=== PATIENT | male | born 1990 | race African-American/Black ===

== ENCOUNTER → 2016-07-12 | Outpatient (CLI) | payer OTHER ==
--- NOTE | 2016-07-12 13:58 | REP ---
MR BRAIN WITHOUT CONTRAST: HISTORY: Seizures. There are no areas of abnormal signal intensity in the brain. There is no intraparenchymal hemorrhage, infarct, mass or midline shift. The ventricular system is normal in appearance. There is no extracerebral collection. Mucosal thickening is present in the maxillary sinuses. IMPRESSION: There is no intracranial lesion. Signed by Deniz Barrett MD 07/12/2016 02:11 P
== END ==
LOC: M RAD 10:50
PROVIDERS: ATTEND Thoracic Surgery (Cardiothoracic Vascular Surgery)
DX: G40.909 Epilepsy, unspecified, not intractable, without status epilepticus (principal)
CPT/HCPCS: 70553; A9576

== ENCOUNTER 2021-05-14 08:42 | Emergency (ER) | payer MEDICAID, OTHER ==
[~2021-05-14] VITALS: Ht 188 cm; Wt 82.6 kg
[2021-05-14] MEDS ORDERED: KETOROLAC 30 MG/ML 1ML VIAL IV ONE (09:55)
[2021-05-14] MEDS ORDERED: ALBUTEROL 90 MCG/ACT 8GM HFA INHALER INH SCH (09:55)
[2021-05-14] MEDS ORDERED: ACETAMINOPHEN 325 MG TAB PO ONE (09:55)
[2021-05-14] MEDS ORDERED: ONDANSETRON 4MG/2ML VIAL IV ONE (09:55)
[2021-05-14] MEDS ORDERED: NS 1,000 ML IV ONE (09:55)
[2021-05-14 10:37] LABS: RSV AMPLIFICATION NEGATIVE (NEGATIVE)
[2021-05-14 10:42] LABS: BASO # 0.1 10^3/uL (0.0-0.2); BASO % 0.8 % (0.0-1.0); EOS % 0.4 % (0.0-3.0); HEMATOCRIT 40.5 % (42.0-52.0); HEMOGLOBIN 13.7 g/dl (13.5-17.5); LYMPH # 0.6 10^3/uL (1.5-5.0); LYMPH % 7.7 % (24.0-44.0); MEAN CORPUSCULAR HEMOGLOBIN 28.4 pg (27.0-33.0); MEAN CORPUSCULAR HGB CONC 33.8 g/dl (32.0-36.5); MEAN CORPUSCULAR VOLUME 83.9 fl (80.0-96.0); MONO # 1.4 10^3/uL (0.0-0.8); MONO % 19.2 % (2.0-8.0); NEUTROPHILS # 5.3 10^3/uL (1.5-8.5); NEUTROPHILS % 71.5 % (36.0-66.0); RED BLOOD COUNT 4.83 10^6/uL (4.30-6.10); WHITE BLOOD COUNT 7.4 10^3/uL (4.0-10.0)
[2021-05-14 11:09] LABS: BLOOD UREA NITROGEN 10 MG/DL (7-18); CALCIUM LEVEL 9.2 MG/DL (8.5-10.1); CARBON DIOXIDE LEVEL 28 MEQ/L (21-32); CHLORIDE LEVEL 102 MEQ/L (98-107); CREATININE FOR GFR 0.88 MG/DL (0.70-1.30); GLOMERULAR FILTRATION RATE > 60.0 (>60); GLUCOSE, FASTING 101 MG/DL (70-100); SODIUM LEVEL 136 MEQ/L (136-145)
[2021-05-14] MEDS ORDERED: OSELTAMIVIR PHOSPHATE 75 MG CAP (TAMIFLU) PO ONE (11:50)
[2021-05-14] MEDS ORDERED: PROAAER10 INH (12:00)
[2021-05-14] MEDS ORDERED: ONDA4TAB6 PO (12:00)
[2021-05-14] MEDS ORDERED: TESS100C PO (12:00)
[2021-05-14 12:06] VITALS: BP 138/86
[2021-05-14] MEDS ORDERED: OSEL75CA PO (12:11)
== END 2021-05-14 12:20 | disposition home or self-care (01) ==
LOC: M ED 08:42
DX: J09.X9 Influenza due to identified novel influenza A virus with other manifestations (principal); R05.9 Cough, unspecified; R07.9 Chest pain, unspecified; J02.9 Acute pharyngitis, unspecified; Z85.830 Personal history of malignant neoplasm of bone; F17.200 Nicotine dependence, unspecified, uncomplicated; Z79.899 Other long term (current) drug therapy
CPT/HCPCS: 71045; 80048; 85025; 87631; 87880; 94640; 94664; 96361; 96374; 96375; 99284; J1885; J2405

== ENCOUNTER 2022-01-13 15:55 | Emergency (ER) | payer OTHER ==
[~2022-01-13] VITALS: Ht 188 cm; Wt 83.2 kg
[~2022-01-13 15:55] MED LIST: ONDA4TAB6 PO; OSEL75CA PO; PROAAER10 INH; TESS100C PO
[2022-01-13 15:56] VITALS: BP 125/76
[2022-01-13 16:46] LABS: BASO # 0.1 10^3/uL (0.0-0.2); BASO % 1.6 % (0.0-1.0); EOS % 0.5 % (0.0-3.0); HEMATOCRIT 40.2 % (42.0-52.0); HEMOGLOBIN 13.6 g/dl (13.5-17.5); LYMPH # 1.9 10^3/uL (1.5-5.0); LYMPH % 33.4 % (24.0-44.0); MEAN CORPUSCULAR HEMOGLOBIN 28.6 pg (27.0-33.0); MEAN CORPUSCULAR HGB CONC 33.8 g/dl (32.0-36.5); MEAN CORPUSCULAR VOLUME 84.6 fl (80.0-96.0); MONO # 0.5 10^3/uL (0.0-0.8); MONO % 8.9 % (2.0-8.0); NEUTROPHILS # 3.1 10^3/uL (1.5-8.5); NEUTROPHILS % 55.2 % (36.0-66.0); PLATELET COUNT, AUTOMATED 251 10^3/uL (150-450); RED BLOOD COUNT 4.75 10^6/uL (4.30-6.10); WHITE BLOOD COUNT 5.6 10^3/uL (4.0-10.0)
[2022-01-13 17:10] LABS: BLOOD UREA NITROGEN 10 MG/DL (7-18); CALCIUM LEVEL 9.1 MG/DL (8.5-10.1); CARBON DIOXIDE LEVEL 24 MEQ/L (21-32); CHLORIDE LEVEL 105 MEQ/L (98-107); CREATININE FOR GFR 0.75 MG/DL (0.70-1.30); GLOMERULAR FILTRATION RATE > 60.0 (>60); GLUCOSE, FASTING 82 MG/DL (70-100); POTASSIUM SERUM 3.8 MEQ/L (3.5-5.1); SODIUM LEVEL 136 MEQ/L (136-145)
[2022-01-13 19:52] LABS: MAGNESIUM LEVEL 2.1 MG/DL (1.8-2.4); THYROID STIMULATING HORMONE 0.312 uIU/ML (0.358-3.740)
== END 2022-01-13 21:17 | disposition home or self-care (01) ==
LOC: M ED 15:55
DX: R55 Syncope and collapse (principal); Z53.20 Procedure and treatment not carried out because of patient's decision for unspecified reasons; R22.43 Localized swelling, mass and lump, lower limb, bilateral; Z85.830 Personal history of malignant neoplasm of bone; F17.210 Nicotine dependence, cigarettes, uncomplicated

== ENCOUNTER 2023-08-19 15:49 | Emergency (ER) | payer OTHER, SELFPAY ==
[2023-08-19 15:50] VITALS: TEMP 98.3
[2023-08-19] MEDS ORDERED: HYDR-3713 PO (19:02)
[2023-08-19 19:11] VITALS: BP 174/94; O2SAT 99
== END 2023-08-19 19:12 | disposition home or self-care (01) ==
LOC: M ED 15:49
DX: R68.84 Jaw pain (principal); F12.10 Cannabis abuse, uncomplicated; F10.10 Alcohol abuse, uncomplicated; Z79.1 Long term (current) use of non-steroidal anti-inflammatories (NSAID)

== ENCOUNTER 2024-02-03 07:35 | Emergency (ER) | payer OTHER, SELFPAY ==
[~2024-02-03] VITALS: Ht 188 cm; Wt 82.2 kg
[~2024-02-03 07:35] MED LIST changes: +HYDR-3713 PO; +ONDA-282 PO; -ONDA4TAB6 PO
[2024-02-03] MEDS ORDERED: CLIN-250 (07:46)
[2024-02-03 08:48] LABS: BASO # 0.1 10^3/uL (0.0-0.2); EOS # 0.1 10^3/uL (0.0-0.5); EOS % 3.1 % (0.0-3.0); HEMATOCRIT 39.5 % (42.0-52.0); HEMOGLOBIN 13.5 g/dl (13.5-17.5); LYMPH # 1.7 10^3/uL (1.5-5.0); LYMPH % 46.5 % (24.0-44.0); MEAN CORPUSCULAR HGB CONC 34.2 g/dl (32.0-36.5); MEAN CORPUSCULAR VOLUME 87.8 fl (80.0-96.0); MONO # 0.5 10^3/uL (0.0-0.8); MONO % 12.6 % (2.0-8.0); NEUTROPHILS # 1.3 10^3/uL (1.5-8.5); NEUTROPHILS % 35.8 % (36.0-66.0); PLATELET COUNT, AUTOMATED 233 10^3/uL (150-450); WHITE BLOOD COUNT 3.6 10^3/uL (4.0-10.0)
[2024-02-03 08:53] LABS: ERYTHROCYTE SEDIMENTATION RATE 11 mm/hr (0-15)
[2024-02-03] MEDS: AMPICILLIN SOD/SULBACTAM SOD 3 GM in D5W MINI-BAG PLUS 100 ML IV ONE (09:00)
[2024-02-03] MEDS: KETOROLAC 30 MG/ML 1ML VIAL IV ONE (09:00)
[2024-02-03 09:15] LABS: C REACTIVE PROTEIN QUANTITATIV < 0.40 MG/DL (<1.0)
[2024-02-03 09:16] LABS: BLOOD UREA NITROGEN 15 MG/DL (9-23); CARBON DIOXIDE LEVEL 28 MMOL/L (20-31); CHLORIDE LEVEL 107 MMOL/L (98-107); GLOMERULAR FILTRATION RATE > 60.0 (>60); GLUCOSE, FASTING 87 MG/DL (60-100); POTASSIUM SERUM 4.3 MMOL/L (3.5-5.1); SODIUM LEVEL 137 MMOL/L (136-145)
[2024-02-03] MEDS ORDERED: ISOVUE-370 76% 100ML VIAL As Ordered ONE (09:27)
[2024-02-03 10:18] VITALS: BP 134/80; TEMP 97.7; O2SAT 100
[2024-02-03] MEDS: MORPHINE 4 MG/ML 1ML VIAL IV ONE (10:23)
[2024-02-03] MEDS ORDERED: AMOX875T2 PO (11:44)
[2024-02-03] MEDS ORDERED: IBUP-1022 PO (11:44)
== END 2024-02-03 11:59 | disposition home or self-care (01) ==
LOC: M ED 07:55
DX: L03.211 Cellulitis of face (principal); F12.10 Cannabis abuse, uncomplicated; Z79.2 Long term (current) use of antibiotics; Z79.1 Long term (current) use of non-steroidal anti-inflammatories (NSAID)
CPT/HCPCS: 70491; 80048; 83605; 85025; 85652; 86140; 87040; 96365; 96366; 96375; 99284; J0295; J1885; Q9967